=== PATIENT | male | born 1990 | race Caucasian/White ===

== ENCOUNTER 2020-07-08 18:58 | Emergency (ER) | payer OTHER ==
[~2020-07-08 18:58] MED LIST: CYCLOBENZAPRINE10 MG PO; IBUPROFEN800 MG PO
[2020-07-08] MEDS ORDERED: ERYTHROMYCIN O3.5 GM OS (21:49)
== END 2020-07-08 22:05 | disposition home or self-care (01) ==
LOC: ER1 18:58
DX: T15.02XA Foreign body in cornea, left eye, initial encounter (principal); Z86.718 Personal history of other venous thrombosis and embolism
CPT/HCPCS: 65220; 99283

== ENCOUNTER 2020-10-25 18:19 | Emergency (ER) | payer OTHER ==
[~2020-10-25 18:19] MED LIST changes: +ERYTHROMYCIN O3.5 GM OS
== END 2020-10-25 20:35 | disposition home or self-care (01) ==
LOC: ER1 18:19
DX: S93.401A Sprain of unspecified ligament of right ankle, initial encounter (principal); S93.402A Sprain of unspecified ligament of left ankle, initial encounter; S93.601A Unspecified sprain of right foot, initial encounter; S80.12XA Contusion of left lower leg, initial encounter; Z86.718 Personal history of other venous thrombosis and embolism; Z79.899 Other long term (current) drug therapy; X50.1XXA Overexertion from prolonged static or awkward postures, initial encounter
CPT/HCPCS: 73562; 73590; 73610; 73630; 99283

== ENCOUNTER 2021-12-08 22:18 | Emergency (ER) | payer OTHER ==
[2021-12-08 22:52] LABS: HEMOGLOBIN 16.5 gm/dl (14.0-17.5); RED BLOOD COUNT 5.57 M/UL (4.20-5.50); WHITE BLOOD COUNT 8.7 K/UL (4.5-11.0)
[2021-12-08 23:29] LABS: BUN/CREATININE RATIO 10 (0-10)
== END 2021-12-09 01:57 | disposition home or self-care (01) ==
LOC: ER1 22:18
PROVIDERS: Physician Assistant Medical
DX: M79.605 Pain in left leg (principal); Z86.718 Personal history of other venous thrombosis and embolism; Z79.01 Long term (current) use of anticoagulants; Z51.81 Encounter for therapeutic drug level monitoring
CPT/HCPCS: 80053; 85025; 85379; 85610; 99284; Q9967